=== PATIENT | female | born 1975 ===

== ENCOUNTER 2018-04-22 06:10 | Day surgery (SDC) | payer OTHER ==
[2018-04-08 08:42] VITALS: BMI 27.8
[2018-04-22] MEDS ORDERED: Remifentanil 1 mg/3 ml Vial IV ONE (07:07)
[2018-04-22] MEDS ORDERED: Midazolam 2 MG/2 ML VIAL ONE (07:09)
[2018-04-22] MEDS ORDERED: Propofol 10 mg/ml Inj (20 ML) ONE ×3 (07:09→10:41)
[2018-04-22] MEDS ORDERED: ceFAZolin 1 gm FROZEN Premix 2 GM/100 ML ML IVPB ONE (07:27)
[2018-04-22] MEDS ORDERED: Thrombin Topical 20,000 Intl Units Spray Kit TOP ONE (07:59)
[2018-04-22] MEDS: Lidocaine/Epinephrine 1% 1:100000 10 ML IJ ONE ×2 (09:20→11:51)
[2018-04-22] MEDS: Absorbable Gelatin Sponge Size 12-7 ONE ×2 (09:20→11:30)
[2018-04-22] MEDS: Bupivacaine 0.25% 20 ML INJ IJ ONE ×2 (09:20→11:51)
[2018-04-22] MEDS: Thrombin Topical 5,000 Int Units Spray Kit ONE ×2 (09:21→11:30)
[2018-04-22] MEDS ORDERED: Morphine 4 MG/ML VIAL ONE ×2 (11:38→12:24)
--- NOTE | 2018-04-22 12:19 | PCM.SURG1 ---
Surgeon's Initial Post Op Note - Surgeon's Notes Surgeon: Dontae Probation Manager: PGY4, Otoniel PGY3, Priscilla SALINAS Type of Anesthesia: General Endo, Local Pre-Operative Diagnosis: R parathyroid adenoma Operative Findings: 1x R parathyroid adenoma. 1x normal R parathyroid Post-Operative Diagnosis: R parathyroid adenoma Operation Performed: R Parathyroidectomy with R neck exploration Specimen/Specimens Removed: 1x R parathyroid adenoma. 1x normal R parathyroid Estimated Blood Loss: EBL {In ML}: 5 Blood Products Given: N/A Drains Used: No Drains Post-Op Condition: Good Date of Surgery/Procedure: 04/22/18 Time of Surgery/Procedure: 10:00
[2018-04-22] MEDS: Morphine 4 MG/ML VIAL IVP PRN ×2 (12:25→12:55)
[2018-04-22] MEDS ORDERED: Oxycodone/Acetaminophen 5/325 mg Tab PO PRN ×2 (12:27→17:05)
[2018-04-22] MEDS ORDERED: Morphine 4 MG/ML VIAL IVP PRN (14:15)
[2018-04-22 14:16] VITALS: O2SAT 100
[2018-04-22 15:29] VITALS: PULSE 98; RESP 16; TEMP 97.2
[2018-04-22 17:25] VITALS: BP 145/69
--- NOTE | 2018-04-23 13:59 | OP ---
PROCEDURE DATE: 04/22/2018 PREOPERATIVE DIAGNOSIS: Right parathyroid adenoma. POSTOPERATIVE DIAGNOSES: 1. Right superior parathyroid adenoma. 2. Hypercalcemia and hyperparathyroidism. PROCEDURES: 1. Unilateral neck exploration. 2. Right-sided parathyroidectomy. 3. Intraoperative recurrent laryngeal nerve monitoring. SURGEON: Dawood Diggs MD ASSISTANTS: Willard Al, PGY-4 resident; Priya Frederick DO, PGY-3 resident. ANESTHESIA: General endotracheal tube anesthesia. ESTIMATED BLOOD LOSS: Around 20 mL. DRAINS: None. PATHOLOGY: The three intraop frozen section specimen was sent. The first one was normal parathyroid, the second one was vascular tissue, and the third one was parathyroid adenoma of superior parathyroid gland. DESCRIPTION OF PROCEDURE: On intraoperative steps, this 43-year-old female was diagnosed with hypercalcemia and hyperparathyroidism with right-sided parathyroid adenoma and the patient was consented for the excision of a parathyroid adenoma on the right side, brought to the OR, placed supine on the operating table. After induction of the anesthesia, the neck and upper chest was prepped and draped in usual sterile fashion and the transverse skin crease incision was made of approximately 6 cm size. The skin, subcutaneous tissue and the platysma was divided. Upper and lower flap was created. The dissection was carried down in the midline and the strap muscles was from the thyroid gland and dissection was carried down laterally and thyroid gland was retracted medially and the first inferior thyroid artery, inferior thyroid vein was identified. The superior pole was also dissected. A complete unilateral neck exploration was done and very small parathyroid gland was identified initially in the lower part of the wound and was sent for intraop frozen section and then the dissection was carried down to remove suspicious-looking small nodule that was vascular tissue on intraop frozen section and then superior parathyroid gland was identified and it appeared to be adenomatous and approximately 2 cm in size and that was completely excised. The recurrent laryngeal nerve, inferior thyroid artery, inferior thyroid vein, the superior pedicle was completely identified, isolated and intraoperative nerve monitoring was used to detect and preserve the recurrent laryngeal nerve. After intraop confirmation of parathyroid adenoma, the wound was irrigated. Proper hemostasis was achieved and the wound was closed in multiple layers. No drain was placed. The strap muscles and platysma with 0 Vicryl suture and subcu with a 3-0 Vicryl and skin with a 4-0 Monocryl and dry sterile dressing was applied. The patient tolerated the procedure well. Count of the instrument and gauze was correct. There was no apparent complication. The patient was extubated in the OR, sent to the postanesthesia care unit in stable condition. The postoperative PTH and the calcium level was ordered and the patient had a normal voice after operation. Dawood Diggs MD
== END 2018-04-22 17:51 | disposition home or self-care (01) ==
LOC: C.SDS 06:10
PROVIDERS: ATTEND Surgery Surgical Critical Care
DX: D35.1 Benign neoplasm of parathyroid gland (principal); E83.52 Hypercalcemia; E21.3 Hyperparathyroidism, unspecified
CPT/HCPCS: 36415; 60500; 82310; 82330; 83970; 84702; 88307; 88331; J0690; J2250; J2270; J2704; J3010